=== PATIENT | female | born 1965 | race African-American/Black ===

== ENCOUNTER 2021-12-15 14:23 | Emergency (ER) | payer OTHER, BC ==
[2021-12-15 14:58] VITALS: BP 131/88; PULSE 99; TEMP 98.2; BMI 80.1
[2021-12-15] MEDS ORDERED: KETOROLAC TROMETHAMINE 30 MG/1 ML VIAL IM ONE (15:35)
[2021-12-15] MEDS ORDERED: diazePAM 5 MG TABLET PO ONE (15:35)
[2021-12-15] MEDS ORDERED: KETOROLAC TROMETHAMINE 30 MG/1 ML VIAL ONE (15:41)
[2021-12-15] MEDS ORDERED: diazePAM 5 MG TABLET ONE (15:41)
== END 2021-12-15 16:24 | disposition home or self-care (01) ==
LOC: JERFT 14:23
PROC: 3E0233Z Introduction of Anti-inflammatory into Muscle, Percutaneous Approach (ICD-10-PCS; principal; 2021-12-15)
DX: M54.50 Low back pain, unspecified (principal); V43.52XA Car driver injured in collision with other type car in traffic accident, initial encounter
CPT/HCPCS: 72100-TC-FY; 99284-25

== ENCOUNTER → 2021-12-17 | Emergency (ER) | payer BC, OTHER ==
[2021-12-17 16:45] VITALS: BP 99/67; PULSE 101; TEMP 98.1; BMI 36.3
== END | disposition left against medical advice (07) ==
LOC: JERFT 15:47 → JER 15:47
DX: S30.1XXA Contusion of abdominal wall, initial encounter (principal); V49.40XA Driver injured in collision with unspecified motor vehicles in traffic accident, initial encounter
CPT/HCPCS: 74176-TC; 99284-25